=== PATIENT | female | born 1985 | race Caucasian/White ===

== ENCOUNTER 2021-10-12 10:32 | Day surgery (SDC) | payer OTHER ==
[~2021-10-12] VITALS: Ht 172.7 cm; Wt 63.0 kg
[2021-10-12] VITALS (9 sets, daily range): BP systolic 92–113; BP diastolic 44–65
[2021-10-12] MEDS ORDERED: 0.9%NACL 1000ML 1,000 ML IV ONE (11:12)
[2021-10-12] MEDS ORDERED: PROPOFOL 10 MG/ML 20ML VIAL IV ONE (14:54)
[2021-10-12] MEDS ORDERED: POLY17PO4 PO (15:44)
[2021-10-12] MEDS ORDERED: HYDR25SU38 PR (15:45)
== END 2021-10-12 15:50 | disposition home or self-care (01) ==
LOC: ENDO 10:32 → DAH 10:32 → ENDO 15:50
PROVIDERS: ATTEND Internal Medicine Gastroenterology
DX: K92.1 Melena (principal); K62.89 Other specified diseases of anus and rectum; K59.00 Constipation, unspecified; K64.1 Second degree hemorrhoids; Z90.49 Acquired absence of other specified parts of digestive tract
CPT/HCPCS: 45378; 81025; 87426; A4215 ×2; A4221; A4222; A4223; A4606; A4620; A4663; J2704; J7030 ×2